=== PATIENT | male | born 1950 | race Two or more races ===

== ENCOUNTER → 2016-12-27 | Day surgery (SDC) | payer OTHER, MEDICARE | END | disposition home or self-care (01) | LOC: BMCIMAGING 08:43 | PROVIDERS: ATTEND Urology | PROC: 0VB03ZX Excision of Prostate, Percutaneous Approach, Diagnostic (ICD-10-PCS; principal; 2016-12-27) | DX: R97.20 Elevated prostate specific antigen [PSA] (principal) ==

== ENCOUNTER 2016-12-28 16:19 | Emergency (ER) | payer OTHER, MEDICARE ==
--- NOTE | 2016-12-28 17:01 | EDPHY ---
H & P Stated Complaint: pt had bx of prostate friday/now with fever/chills/pain Time Seen by Provider: 12/28/16 17:00 - Personal History Current Tetanus/Diphtheria Vaccine: Yes - Medical/Surgical History Hx Asthma: No Hx Chronic Respiratory Disease: No Hx Diabetes: No Hx Cardiac Disease: No Hx Renal Disease: No Hx Cirrhosis: No Hx Alcoholism: No Hx HIV/AIDS: No Hx Splenectomy or Spleen Trauma: No Other PMH: bph/elevated psa/cervical fx - Social History Smoking Status: Never smoked Constitutional: Initial Vital Signs Temperature (C) 37.9 C 12/28/16 16:34 Heart Rate 114 H 12/28/16 16:34 Respiratory Rate 20 12/28/16 16:34 Blood Pressure 118/82 H 12/28/16 16:34 O2 Sat (%) 92 12/28/16 16:34 O2 Delivery Mode Room Air Allergies/Adverse Reactions: No Known Allergies Allergy (Verified 12/28/16 16:33) Home Medications: Medication Instructions Recorded HYDROcodone/APAP 10/325 [Corinth 1 - 2 each PO Q4-6PRN PRN #20 tab 12/28/16 10/325] levOFLOXACIN [levAQUIN (*)] 750 mg PO DAILY #21 tab 12/28/16 Medical Decision Making - Diagnostics Imaging Results: Imaging Impressions Abdomen CT 12/28/16 17:07 Impression: 1. Heterogeneous enlargement of the prostate gland (query underlying prostatitis , although nonspecific--histology results from the prostate gland biopsy yesterday are not yet available), with no kenneth abscess identified. There is mild wall thickening of the rectum (query proctitis), and there is some perirectal inflammation. 2. There is no evidence of pneumoperitoneum. Findings were discussed with Rex Collins MD at 18:50, on 12/28/2016. ED Course/Re-evaluation: CHIEF COMPLAINT: Chills, fever, headache. HISTORY OF PRESENT ILLNESS: The patient is a 66-year-old male who presents with chills, fever, and headache that began late last night. He is one day status- post 12 biopsies on his prostate. He admits associated abdominal pressure and lower abdominal pain. He has been on antibiotics since and his last dose was last night. REVIEW OF SYSTEMS: A 10 point review of systems was performed and is negative with the exception of the elements mentioned in the history of present illness. PHYSICAL EXAM: HR, BP, O2 Sat, RR. Temp noted General Appearance: Alert, well hydrated, appropriate, and non-toxic appearing. Head: Atraumatic without scalp tenderness or obvious injury Eyes: Pupils equal, round, reactive to light and accommodation, EOMI, no trauma , no injection. Ears: Clear bilaterally, no perforation, normal landmarks Nose: Atraumatic, no rhinorrhea, clear. Throat: There is no erythema or exudates, no lesions, normal tonsils, mucus membranes moist. Neck: Supple, 2+ carotid upstroke, nontender, no lymphadenopathy. Respiratory: No retractions, no distress, no wheezes, and no accessory muscle use. Lungs are clear to auscultation bilaterally. Cardiovascular: Regular rate and rhythm, no murmurs, rubs, or gallops. Bilateral carotid, radial, dorsalis pedis, and posterior tibial pulses intact. Good capillary refill all extremities. Gastrointestinal: Abdomen is soft, nontender, non-distended, no masses, no rebound, no guarding, no peritoneal signs. Musculoskeletal: Normal active ROM of all extremities, atraumatic. Neurological: Alert, appropriate, and interactive. The patient has normal DTRs and non-focal cranial nerves, motor, sensory, and cerebellar exam. Skin: No rashes, good turgor, no nodules on palpation. Past medical history: BPH, elevated PSA, cervical fx Family history: Non-contributory. Social history: . DIAGNOSTICS/PROCEDURES/CRITICAL CARE TIME: Study: CT of the abdomen/pelvis Indication: Abdominal pain, recent prostate biopsies. Results: No abscess, no pneumoperitoneum. The study was read by the radiologist, Dr. Elkins. I viewed the images myself on the PACS system. DIFFERENTIAL DIAGNOSIS: The differential diagnosis for the patient includes, but is not limited to: severe sepsis, sepsis, prostatitis, viral syndrome. MEDICAL DECISION MAKIN-year-old male presents with chills, fever, and headache that began after he had 12 core biopsies taken of his prostate yesterday. He does not meet sepsis criteria at this time and his tachycardia is likely due to his fever. I feel this is highly likely a prostatitis from his operation yesterday. 1gm IV Ertapenem ordered. An IV was established. ISTAT ordered along with basic labs. Abdominal CT ordered to rule out procedural complications. 30mg IV Toradol administered. 1L IV saline administered for hydration. I reviewed the patient's laboratory studies. Urine is positive for blood, leukocyte esterase, and WBCs, indicating prostatitis. I will prescribe him a 20 day course of Levaquin. 1853: CT results conveyed to me by Dr. Elkins, radiology, as no abscess, no pneumoperitoneum. I discussed these results with him. He understands to follow up with his urologist. He is comfortable with the plan. - Data Points Laboratory Results: Laboratory Results 12/28/16 16:50 12/28/16 16:50 12/28/16 12/28/16 12/28/16 16:50 16:50 16:50 WBC 15.42 10^3/uL H 10^3/uL (3.80-9.50) RBC 4.88 10^6/uL 10^6/uL (4.40-6.38) Hgb 16.1 g/dL g/dL (13.7-17.5) Hct 45.0 % % (40.0-51.0) MCV 92.2 fL fL (81.5-99.8) MCH 33.0 pg pg (27.9-34.1) MCHC 35.8 g/dL g/dL (32.4-36.7) RDW 12.1 % % (11.5-15.2) Plt Count 188 10^3/uL 10^3/uL (150-400) MPV 10.6 fL fL (8.7-11.7) Neut % (Auto) 85.7 % H % (39.3-74.2) Lymph % (Auto) 6.9 % L % (15.0-45.0) [place] % (Auto) 6.5 % % (4.5-13.0) Eos % (Auto) 0.1 % L % (0.6-7.6) Baso % (Auto) 0.3 % % (0.3-1.7) Nucleat RBC Rel Count 0.0 % % (0.0-0.2) Absolute Neuts (auto) 13.20 10^3/uL H 10^3/uL (1.70-6.50) Absolute Lymphs (auto) 1.07 10^3/uL 10^3/uL (1.00-3.00) Absolute Monos (auto) 1.01 10^3/uL H 10^3/uL (0.30-0.80) Absolute Eos (auto) 0.01 10^3/uL L 10^3/uL (0.03-0.40) Absolute Basos (auto) 0.05 10^3/uL 10^3/uL (0.02-0.10) Absolute Nucleated RBC 0.00 10^3/uL 10^3/uL (0-0.01) Immature Gran % 0.5 % % (0.0-1.1) Immature Gran # 0.08 10^3/uL 10^3/uL (0.00-0.10) Sodium 135 mEq/L mEq/L (134-144) Potassium 4.2 mEq/L mEq/L (3.5-5.2) Chloride 100 mEq/L mEq/L (97-110) Carbon Dioxide 20 mEq/l L mEq/l (22-31) Anion Gap 15 mEq/L mEq/L (8-16) BUN 16 mg/dL mg/dL (7-23) Creatinine 1.1 mg/dL mg/dL (0.7-1.3) Estimated GFR > 60 Glucose 116 mg/dL H mg/dL (70-100) Calcium 9.8 mg/dL mg/dL (8.5-10.4) Urine Color YELLOW Urine Appearance HAZY Urine pH 6.0 (5.0-7.5) Ur Specific [place] 1.024 (1.002-1.030) Urine Protein 1+ H (NEGATIVE) Urine Ketones NEGATIVE (NEGATIVE) Urine Blood 3+ H (NEGATIVE) Urine Nitrate NEGATIVE (NEGATIVE) Urine Bilirubin NEGATIVE (NEGATIVE) Urine Urobilinogen NEGATIVE EU EU (0.2-1.0) Ur Leukocyte Esterase 1+ H (NEGATIVE) Urine RBC 50-182 /hpf H /hpf (0-3) Urine WBC 50-182 /hpf H /hpf (0-3) Ur Epithelial Cells TRACE /lpf /lpf (NONE-1+) Urine Mucus TRACE /lpf /lpf (NONE-1+) Urine Glucose NEGATIVE (NEGATIVE) Medications Given: Discontinued Medications Ertapenem 1 gm/ Sodium (Chloride) 100 mls @ 200 mls/hr IV EDNOW ONE PRN Reason: Protocol Stop: 12/28/16 17:36 Last Admin: 12/28/16 17:47 Dose: 100 mls Sodium Chloride (Ns) 1,000 mls @ 0 mls/hr IV EDNOW ONE; Wide Open PRN Reason: Protocol Stop: 12/28/16 17:08 Last Admin: 12/28/16 17:16 Dose: 1,000 mls Ketorolac Tromethamine (Toradol) 30 mg IVP EDNOW ONE Stop: 12/28/16 17:08 Last Admin: 12/28/16 17:15 Dose: 30 mg Departure - Departure Disposition: Home, Routine, Self-Care Clinical Impression: Prostatitis Qualifiers: Prostatitis type: unspecified Qualified Code(s): N41.9 - Inflammatory disease of prostate, unspecified Condition: Good Instructions: Prostatitis (ED) Additional Instructions: Take Levaquin as prescribed. Follow up with your urologist for reevaluation. Return for any serious worsening of condition. Referrals: Omari Doty MD [Primary Care Provider] - As per Instructions Prescriptions: HYDROcodone/APAP 10/325 [Corinth 10/325] 1 - 2 each PO Q4-6PRN PRN #20 tab PRN Reason: Pain, Moderate levOFLOXACIN [levAQUIN (*)] 750 mg PO DAILY #21 tab Report Scribed for: Rex Collins Report Scribed by: Omid Little Date of Report: 12/28/16 Time of Report: 17:37
[2016-12-28] MEDS ORDERED: KETOROLAC 30 MG/1 ML SDV IVP ONE (17:07)
[2016-12-28] MEDS ORDERED: ERTAPENEM 1 GM in NS 100 ML IV ONE (17:07)
[2016-12-28] MEDS ORDERED: NS 1,000 ML IV ONE (17:07)
[2016-12-28 17:14] LABS: % IMMATURE GRANULYOCYTES 0.5 % (0.0-1.1); ABSOLUTE IMMATURE GRANULOCYTES 0.08 10^3/uL (0.00-0.10); ADD DIFF? NO; ADD MORPH? NO; ADD SCAN? NO; ATYPICAL LYMPHOCYTE FLAG 0 (0-99); FRAGMENT RBC FLAG 0 (0-99); HEMOGLOBIN 16.1 g/dL (13.7-17.5); LEFT SHIFT FLG 0 (0-99); LIPEMIA HEMOLYSIS FLAG 90 (0-99); MEAN CELL HEMOGLOBIN CONCENTR. 35.8 g/dL (32.4-36.7); MEAN CELL VOLUME 92.2 fL (81.5-99.8); MEAN PLATELET VOLUME 10.6 fL (8.7-11.7); PLATELET CLUMPS FLAG 10 (0-99); PLATELET COUNT 188 10^3/uL (150-400); RED BLOOD CELL COUNT 4.88 10^6/uL (4.40-6.38); RED CELL DISTRIBUTION WIDTH 12.1 % (11.5-15.2)
[2016-12-28 17:15] LABS: COLOR YELLOW; LEUKOCYTE ESTERASE,URINE 1+ (NEGATIVE); NITRITE,URINE NEGATIVE (NEGATIVE)
[2016-12-28 17:18] LABS: MUCUS TRACE /lpf (NONE-1+); RBC,URINE 50-182 /hpf (0-3); WBC,URINE 50-182 /hpf (0-3)
[2016-12-28 17:23] LABS: ANION GAP 15 mEq/L (8-16); CALCIUM 9.8 mg/dL (8.5-10.4); CARBON DIOXIDE 20 mEq/l (22-31); CHLORIDE 100 mEq/L (97-110); CREATININE 1.1 mg/dL (0.7-1.3); GLOMERULAR FILTRATION RATE > 60; GLUCOSE 116 mg/dL (70-100); POTASSIUM 4.2 mEq/L (3.5-5.2); SODIUM 135 mEq/L (134-144)
[2016-12-28] MEDS ORDERED: IOPAMIDOL (ISOVUE-300) 100 ML BTL ONE (18:16)
[2016-12-28 18:59] VITALS: RESP 16
[2016-12-28] MEDS ORDERED: HYDROCOD/APAP 5/325 PREPACK#6 BTL TAKEHOME ONE (19:04)
[2016-12-28 19:11] VITALS: BP 115/65; PULSE 88; TEMP 97.9; O2SAT 96
== END 2016-12-28 19:11 | disposition home or self-care (01) ==
DX: N41.9 Inflammatory disease of prostate, unspecified (principal); E86.9 Volume depletion, unspecified
CPT/HCPCS: 74177; 96361; 96365; 96375; 99285; J1335; J1885; Q9967

== ENCOUNTER → 2017-08-18 | Outpatient (CLI) | payer OTHER, MEDICARE | LOC: BMCIMAGING 09:52 | PROVIDERS: ATTEND Orthopaedic Surgery | DX: M17.0 Bilateral primary osteoarthritis of knee (principal) ==

== ENCOUNTER → 2017-08-27 | Outpatient (CLI) | payer OTHER, MEDICARE | LOC: FIMAGING 14:35 | PROVIDERS: ATTEND Orthopaedic Surgery | DX: Z01.818 Encounter for other preprocedural examination (principal); M17.11 Unilateral primary osteoarthritis, right knee ==

== ENCOUNTER → 2017-09-11 | Outpatient (CLI) | payer OTHER, MEDICARE | LOC: BMCIMAGING 09:27 | PROVIDERS: ATTEND Orthopaedic Surgery | DX: M25.572 Pain in left ankle and joints of left foot (principal) ==

== ENCOUNTER 2017-09-22 09:02 | Observation (INO) | payer OTHER, MEDICARE ==
--- NOTE | 2017-09-22 06:37 | PDHPUP ---
History & Physical Update H&P update statement: This history and physical update is based on an assessment of the patient which was completed after admission or registration (within 24 hours), but prior to the surgery/procedure. H&P update: no change in patient's condition since H&P completed
--- NOTE | 2017-09-22 06:38 | PDIAF ---
- Diagnosis Diagnosis: right knee djd Code Status: Full Code - Medication Management Discharge Medications: Medications to Continue on Transfer Aspirin [Aspirin 81mg (*)] 81 mg PO DAILY 09/02/17 [Last Taken Unknown] Cholecalciferol Vit D3 [Vitamin D3 (*)] 1,000 units PO DAILY 09/02/17 [Last Taken Unknown] Tamsulosin HCl [Flomax 0.4 MG (*)] 0.4 mg PO DAILY18 09/02/17 [Last Taken Unknown] celeCOXIB [Celebrex (*)] 200 mg PO DAILY PRN 09/02/17 [Last Taken Unknown] traMADol [Ultram 50 mg (*)] 50 mg PO HS PRN 09/02/17 [Last Taken Unknown] Discharge Medications: Refer to the Discharge Home Medication list for PRN reason. - Orders Services needed: Physical Therapy Diet Recommendation: no restrictions on diet Activity/Weight Bearing Restrictions: wbat. rom as abbie. keep dressing intact. kamron hose x 2 weeks. f/u at two weeks, seek attn for increasing pain, redness , swelling discharge - Follow Up Care Current Providers and Referrals: Omari Doty MD [Primary Care Provider] -
[~2017-09-22 09:02] MED LIST: BUPI/epINEPH/KETOROLAC/morphINE IU ONE; CALCIUM CHLORIDE 1 GM/10 ML INJ ONE; ROPIVACAINE 0.2% 80 MG, EPINEPHrine 0.2 MG, KETOROLAC TROMETHAMINE 30 MG, morphINE 10 M... IU ONE; THROMBIN (BOVINE) 5,000 UNIT VIAL TP ONE; TRANEXAMIC ACID 1,000 MG in NS (SYRINGE) 50 ML IV ONE; ceFAZolin 1 GM/5 ML SYR ONE
[2017-09-22] MEDS ORDERED: ACETAMINOPHEN 325 MG TAB PO ONE (09:13)
[2017-09-22] MEDS ORDERED: ceFAZolin 2 GM/SWFI 2 GM/20 ML SYR IVP ONE (09:13)
[2017-09-22] MEDS ORDERED: DEXAMETHASONE 4 MG/ML VIAL IVP ONE (09:13)
[2017-09-22] MEDS ORDERED: FAMOTIDINE 20 MG TAB PO ONE (09:13)
[2017-09-22] MEDS ORDERED: LR 1,000 ML IV ONE (09:16)
[2017-09-22] MEDS ORDERED: LIDOCAINE 1% 2 ML INJ ID PRN (09:16)
--- NOTE | 2017-09-22 09:40 | PDANEPAE ---
ANE History of Present Illness R total knee arthroplasty ANE Past Medical History - Cardiovascular History Hx Hypertension: No Hx Arrhythmias: No Hx Chest Pain: No Hx Coronary Artery / Peripheral Vascular Disease: No Hx CHF / Valvular Disease: No Hx Palpitations: No - Pulmonary History Hx COPD: No Hx Asthma/Reactive Airway Disease: No Hx Recent Upper Respiratory Infection: No Hx Oxygen in Use at Home: No Hx Sleep Apnea: Yes Sleep Apnea Screening Result - Last Documented: Negative Pulmonary History Comment: sleep study 09-03-17, pt states he has been told he'll start a CPAP machine trial - Neurologic History Hx Cerebrovascular Accident: No Hx Seizures: No Hx Dementia: No - Endocrine History Hx Diabetes: No Obesity: moderate - Renal History Hx Renal Disorders: Yes Renal History Comment: nocturia x2 -prostate CA. Flomax improves urination - Liver History Hx Hepatic Disorders: No - Neurological & Psychiatric Hx Hx Neurological and Psychiatric Disorders: Yes Neurological / Psychiatric History Comment: limited cervical movement - Cancer History Hx Cancer: Yes Cancer History Comment: prostate -tx w/ radiation and lupron x 18 mos. (Q 4 mos) - Congenital Disorder History Hx Congenital Disorders: No - GI History GERD: no Hx Gastrointestinal Disorders: No - Other Health History Other Health History: OA R knee pain, L knee pain also. hands:dry skin - Chronic Pain History Chronic Pain: Yes (R knee, L knee) - Surgical History Prior Surgeries: cervical fusion C4,5,6 '69. bilat knee scopes ANE Review of Systems Review of Systems: - Exercise capacity METS (RN): 4 METS ANE Patient History - Allergies Allergies/Adverse Reactions: No Known Allergies Allergy (Verified 09/03/17 10:55) - Home Medications Home Medications: Aspirin [Aspirin 81mg (*)] 81 mg PO DAILY 09/02/17 [Last Taken 09/01/17] Cholecalciferol Vit D3 [Vitamin D3 (*)] 1,000 units PO DAILY 09/02/17 [Last Taken 09/08/17] Tamsulosin HCl [Flomax 0.4 MG (*)] 0.4 mg PO DAILY18 09/02/17 [Last Taken ] celeCOXIB [Celebrex (*)] 200 mg PO DAILY PRN 09/02/17 [Last Taken 09/08/17] traMADol [Ultram 50 mg (*)] 50 mg PO HS PRN 09/02/17 [Last Taken 09/08/17] - Anes Hx Anes Hx: no prior problems - Smoking Hx Smoking Status: Never smoked Marijuana use: Yes - Alcohol Use Alcohol Use: Other (10 drinks/week) - Family Anes Hx Family Anes Hx: none ANE Labs/Vital Signs - Vital Signs Height: 177.8 cm Weight: 108.862 kg ANE Physical Exam - Airway Neck exam: decreased ROM Mallampati Score: Class 2 (thick neck, short TMD) Mouth exam: normal dental/mouth exam (upper front cap) - Pulmonary Pulmonary: clear to auscultation - Cardiovascular Cardiovascular: regular rate and rhythym - ASA Status ASA Status: III ANE Anesthesia Plan Anesthesia Plan: spinal Regional Anesthesia: adductor canal FNB
[2017-09-22] MEDS ORDERED: TRANEXAMIC ACID 3,000 MG/50 ML BAG IRR ONE ×2 (09:44→09:48)
[2017-09-22] MEDS ORDERED: MIDAZOLAM 2 MG/2 ML VIAL IVP ONE (11:06)
[2017-09-22] MEDS ORDERED: PROPOFOL 200 MG/20 ML VIAL ONE ×3 (11:30→13:01)
[2017-09-22] MEDS ORDERED: fentaNYL 100 MCG/2 ML INJ ONE (11:30)
[2017-09-22] MEDS ORDERED: DEXAMETHASONE 4 MG/ML VIAL ONE (11:34)
[2017-09-22] MEDS ORDERED: TEMAZEPAM 15 MG CAP PO PRN (11:54)
[2017-09-22] MEDS ORDERED: PROMETHAZINE HCL 25 MG/ML INJ IVP PRN (11:54)
[2017-09-22] MEDS ORDERED: PROMETHAZINE HCL 25 MG SUPPR PR PRN (11:54)
[2017-09-22] MEDS ORDERED: METOCLOPRAMIDE 10 MG/2 ML VIAL IVP PRN (11:54)
[2017-09-22] MEDS ORDERED: ONDANSETRON 4 MG/2 ML VIAL IVP PRN ×2 (11:54→13:11)
[2017-09-22] MEDS ORDERED: diphenhydrAMINE 25 MG CAP PO PRN (11:54)
[2017-09-22] MEDS ORDERED: ONDANSETRON DISINTEGRATING 4 MG TAB PO PRN (11:54)
[2017-09-22] MEDS ORDERED: DIAZEPAM 5 MG TAB PO PRN (11:54)
[2017-09-22] MEDS ORDERED: BISACODYL 10 MG SUPP PR PRN (11:54)
[2017-09-22] MEDS ORDERED: MAGNESIUM HYDROXIDE 30 ML UDCUP PO PRN (11:54)
[2017-09-22] MEDS ORDERED: POLYETHYLENE GLYCOL 3350 17 GM PKT PO PRN (11:54)
[2017-09-22] MEDS ORDERED: DIPHENOXYLATE/ATROPINE LOMOTIL 1 TAB PO PRN (11:54)
[2017-09-22] MEDS ORDERED: LACTULOSE 20 GM/30 ML UDCUP PO PRN (11:54)
[2017-09-22] MEDS ORDERED: traMADol 50 MG TAB PO PRN ×2 (11:54→11:55)
[2017-09-22] MEDS ORDERED: LR 1,000 ML IV SCH (12:00)
[2017-09-22] MEDS ORDERED: fentaNYL 100 MCG/2 ML INJ IVP PRN (13:11)
[2017-09-22] MEDS ORDERED: NALOXONE HCL 0.4 MG/ML INJ IVP PRN (13:11)
[2017-09-22] MEDS ORDERED: HYDROmorphONE/DILAUDID 2 MG/ML INJ IVP PRN (13:11)
[2017-09-22] MEDS ORDERED: ROPIVACAINE HCL 150 MG/30 ML INJ ONE (13:43)
[2017-09-22] MEDS ORDERED: ceFAZolin 2 GM/DEXTROSE 100 ML IV SCH (14:00)
--- NOTE | 2017-09-22 17:55 | POSTANESTH ---
Post Anesthetic Evaluation Cardiovascular Status: Normal, Stable Respiratory Status: Normal, Stable Level of Consciousness/Mental Status: Can Participate in Eval Pain Control: Adequate, Prn Tx Ordered Nausea/Vomiting Control: Adequate, Prn Tx Ordered Complications Possibly Related to Anesthesia: None Noted
[2017-09-22] MEDS ORDERED: TAMSULOSIN HCL 0.4 MG CAP PO SCH (18:00)
[2017-09-22] MEDS: ACETAMINOPHEN 325 MG TAB PO SCH ×3 (18:31→23:47)
[2017-09-22] MEDS: TRANEXAMIC ACID 650 MG TAB PO SCH ×2 (18:31→20:04)
[2017-09-22] MEDS: ceFAZolin 2 GM/SWFI 2 GM/20 ML SYR IVP SCH (20:01)
[2017-09-22] MEDS: ASPIRIN 325 MG TAB PO SCH (20:01)
[2017-09-22] MEDS: SENNOSIDES/DOCUSATE SODIUM TAB PO SCH (20:02)
[2017-09-22] MEDS: FAMOTIDINE 20 MG TAB PO SCH (20:02)
[2017-09-22] MEDS: oxyCODONE IR 5 MG TAB PO PRN (23:47)
[2017-09-23] MEDS: TRANEXAMIC ACID 650 MG TAB PO SCH (04:41)
[2017-09-23] MEDS: ACETAMINOPHEN 325 MG TAB PO SCH ×2 (04:41→10:53)
[2017-09-23] MEDS: ceFAZolin 2 GM/SWFI 2 GM/20 ML SYR IVP SCH (04:42)
--- NOTE | 2017-09-23 07:23 | PDIAF ---
- Diagnosis Diagnosis: right knee djd Code Status: Full Code - Medication Management Discharge Medications: Medications to Continue on Transfer Aspirin [Aspirin 81mg (*)] 81 mg PO DAILY 09/02/17 [Last Taken 09/01/17] Cholecalciferol Vit D3 [Vitamin D3 (*)] 1,000 units PO DAILY 09/02/17 [Last Taken 09/08/17] Tamsulosin HCl [Flomax 0.4 MG (*)] 0.4 mg PO DAILY18 09/02/17 [Last Taken ] celeCOXIB [Celebrex (*)] 200 mg PO DAILY PRN 09/02/17 [Last Taken 09/08/17] traMADol [Ultram 50 mg (*)] 50 mg PO HS PRN 09/02/17 [Last Taken 09/08/17] oxyCODONE IR [Oxycodone Ir (*)] 5 - 10 mg PO Q3HRS PRN #45 tab 09/23/17 [Last Taken Unknown] Discharge Medications: Refer to the Discharge Home Medication list for PRN reason. - Orders Services needed: Physical Therapy Diet Recommendation: no restrictions on diet Diet Texture: Regular Texture Diet Activity/Weight Bearing Restrictions: wbat. rom as abbie. keep dressing intact. kamron hose x 2 weeks. f/u at two weeks, seek attn for increasing pain, redness , swelling discharge Additional Instructions: wbat rom as abbie keep dressing intact kamron hose x 2 weeks f/u at two weeks, seek attn for increasing pain, redness, swelling discharge - Follow Up Care Current Providers and Referrals: Omari Doty MD [Primary Care Provider] - Rah Marin MD [Medical Doctor] -
--- NOTE | 2017-09-23 07:24 | SOAPPROG ---
SOAP Progress Note Assessment/Plan: Assessment: s/p tka Plan:d/c home dvt precautions given f/u at two weeks 09/23/17 07:23 Subjective: no pain no cp or sob abbie po Objective: Vital Signs Temp Pulse Resp BP Pulse Ox 36.6 C 91 16 137/80 H 92 09/23/17 04:37 09/23/17 04:37 09/23/17 04:37 09/23/17 04:37 09/23/17 04:37 Laboratory Results 09/23/17 05:12 09/22/17 09/23/17 09/24/17 05:59 05:59 05:59 Intake Total 3160 Output Total 1075 Balance 2085 dressing intact intact pf,df,ehl toes warm and pink neg homans joce xrays anatomic alignment ICD10 Worksheet Patient Problems: Problems Problem Status Onset Arthritis of knee Acute - ICD10 Problem Qualifiers (1) Arthritis of knee
[2017-09-23] MEDS: SENNOSIDES/DOCUSATE SODIUM TAB PO SCH (09:03)
[2017-09-23] MEDS: ASPIRIN 325 MG TAB PO SCH (09:11)
[2017-09-23] MEDS: FAMOTIDINE 20 MG TAB PO SCH (09:11)
[2017-09-23] MEDS: oxyCODONE IR 5 MG TAB PO PRN (10:54)
[2017-09-23 11:15] VITALS: BP 116/71
--- NOTE | 2017-09-23 12:04 | ASMTCMCOM ---
CM Note CM Note Notes: Pt medically stable for d/c with [facility]. Orders sent in [employer]. Pt address/phone verified. Date Signed: 09/23/2017 12:03 PM Electronically Signed By:ISMAEL De Leon
--- NOTE | 2017-09-23 16:15 | ASDISCHSUM ---
Discharge Information Plan Status:Home with Home Health Medically Cleared to Leave: Discharge Date:09/23/2017 01:19 PM CM D/C Disposition:Home Health Service ADT D/C Disposition:Home Health Service Projected Discharge Date:09/23/2017 11:00 AM Transportation at D/C: Discharge Delay Reason: Follow-Up Date:09/23/2017 11:00 AM Discharge Slot: Final Diagnosis: Placement Information Referral Type:*Home Health Care Services Referral ID:[id number] Provider Name:[facility] Address 1:[address] [address] Address 2: City:[place] Selection Factors: State:[place] Patient Contact Information Contact Name:IVON Relationship: Address:[address] [place] Phone: State/Zip Code:[place] [address] Email: Financial Information Financial Class:Medicare Primary Plan Desc:MEDICARE OUTPATIENT Primary Plan Number:[id number] Secondary Plan Desc:[employer]ARP/MDR SUPPLEMENT Secondary Plan Number:[id number] Assessment Information [facility] CM Progress Note CM Note CM Note Notes: Pt medically stable for d/c with [facility]. [facility]. Pt address/phone verified. Date Signed: 09/23/2017 12:03 PM Electronically Signed By:ISMAEL De Leon Intervention Information Intervention Type:*Incorrect Registration Date of Service:09/22/2017 02:46 PM Patient Type:Inpatient Staff Member:ADALBERTO Scott Susan Hours: Discipline: Severity: Comment:
--- NOTE | 2017-09-25 07:43 | GOP ---
[f rep st] OPERATIVE REPORT DATE OF OPERATION: 09/22/2017 SURGEON: Rah Marin MD ACADEMIC ADMINISTRATOR: Johnson Mena, TRACK GREASER, ELECTRICAL ENGINEERING DESIGNER, surgical aide was a medical necessity for the entirety of the case. PREOPERATIVE DIAGNOSIS: Right knee degenerative joint disease. POSTOPERATIVE DIAGNOSIS: Right knee degenerative joint disease. PROCEDURE PERFORMED: Right total knee arthroplasty, MAKOplasty. FINDINGS: SPECIMENS: To Pathology, the bony cuts. INDICATIONS: The patient is a 67-year-old gentleman with end-stage arthritis to his right knee. Cli nical and radiographic features consistent with this. He has failed all attempts at conservative man agement. I have therefore recommended total knee replacement. I have outlined the surgical procedur e, risks, benefits, and alternatives. He wished to proceed. Written consent was signed and placed i n patient's chart. DESCRIPTION OF PROCEDURE: The patient was identified in the preanesthesia area. The right knee gely rly demarcated as the operative site with an indelible marker. He was given 2 g of Ancef intravenous ly en route to the operative suite. In the OR, spinal anesthetic followed by sedation was administer ed. Attention was turned to the right knee which was sterilely prepped and draped in the usual fashi on. A tourniquet was applied to the upper thigh. Appropriate time-out procedure was carried out. T he limb was then sterilely prepped and draped in the usual fashion. Standard anterior midline incisi on was made. Thick subcutaneous flaps were elevated, followed by medial parapatellar arthrotomy. Th e knee demonstrated tricompartmental changes. Decision was made to proceed with total knee replaceme nt. Two pins were then placed across the medial femur for the femoral reference array followed by fe moral check point, a separate percutaneous incision was made across the geronimo and 2 pins were placed w ith the tibial reference array placed. All bony landmarks were entered into the computer in standard fashion. The knee was balanced after removal of the osteophytes with soft tissue releases, and adju stment of the components using the MAKOplasty software. Using the MAKOplasty robot resections were m kevin for a size 6 femur, size 6 tibia, including a trochlear box cut, which was made with additional c omponent jig. Trial reduction was carried out with a 6 x 9 mm polyethylene. This revealed neutral li mb alignment, stability with varus and valgus stress throughout the flexion-extension arc and no maria e s instability. The trial components were withdrawn. A size 6 tibia was then pressed into position. A size 6 femur, pressed into position and a 6 x 9 mm polyethylene placed, confirmed to be fully seat ed. Once again, the knee was stable through full flexion-extension arc to varus and valgus stress. The patella was then everted, cut in a freehand cutting technique. Three drill holes were then made for the 35 mm asymmetric patella which was press-fit into position. Knee was taken through flexion/e xtension. The patella tracked centrally. The wound was copiously irrigated. The joint injected wit h a joint cocktail of ropivacaine, morphine, Toradol, and epinephrine. The wound was closed in layer s using #1 Ethibond. The knee instilled with platelet-rich plasma solution. Subcutaneous tissue martha sed using Quill and skin aj. A sterile dressing was applied followed by a Cryo/Cuff and the pat ient was awakened, extubated, taken to the recovery room in good stable condition. TOTAL TOURNIQUET TIME: 1 hour. COMPLICATIONS: None. IMPLANTS: Arturo Triathlon PS femoral component, size 6. Tibial component, size 6. Tibial bearing insert 6 x 9 mm. Asymmetrical patella size A35. DISPOSITION: To the recovery room then the floor. /[id number]/MODL
--- NOTE | 2017-09-25 09:18 | GDS ---
[f rep st] DISCHARGE SUMMARY PROGRAM INSTRUCTOR: None. ADMITTING DIAGNOSIS: Right knee degenerative joint disease. DISCHARGE DIAGNOSIS: Right knee degenerative joint disease. PROCEDURE: Right total knee arthroplasty. HISTORY OF PRESENT ILLNESS: The patient is a 67-year-old gentleman with end-stage arthritis to his right knee. Clinical and radiographic features are consistent with this. He presents for elective tot al knee replacement. HOSPITAL COURSE: He was admitted to the hospital floor after uncomplicated total knee replacement. H e tolerated the procedure well. He had no postoperative complications. At the time of discharge, he i s tolerating an oral diet. Pain is well controlled on oral medicines. He is voiding without difficult y. Dressing is clean, dry, and intact. He has negative Homans. X-rays are stable. DISCHARGE ACTIVITY: Weightbearing as tolerated. Range of motion as tolerated. May shower without the bandage. No soaking or immersion. FOLLOWUP: Follow up in 2 weeks. Seek attention for increasing redness, swelling, drainage or dischar ge. DISCHARGE MEDICATIONS: Aspirin 325 mg p.o. daily for 6 weeks and oxycodone 1-2 every 6 hours p.r.n. pain. /[id number]/MODL
== END 2017-09-23 13:19 | disposition home health service (06) ==
LOC: F3N 09:02 → INTOOBSV 09:02 → F3N 15:05
PROVIDERS: ADMIT Orthopaedic Surgery; ATTEND Orthopaedic Surgery
PROC: 0SRC0JZ Replacement of Right Knee Joint with Synthetic Substitute, Open Approach (ICD-10-PCS; principal; 2017-09-22 11:15)
PROC: 3E0U0GB Introduction of Recombinant Bone Morphogenetic Protein into Joints, Open Approach (ICD-10-PCS; principal; 2017-09-22 11:15)
PROC: 8E0YXBZ Computer Assisted Procedure of Lower Extremity (ICD-10-PCS; principal; 2017-09-22 11:15)
DX: M17.11 Unilateral primary osteoarthritis, right knee (principal); R97.20 Elevated prostate specific antigen [PSA]; E78.00 Pure hypercholesterolemia, unspecified; Z72.0 Tobacco use; Z79.82 Long term (current) use of aspirin; Z85.46 Personal history of malignant neoplasm of prostate; Z98.1 Arthrodesis status
CPT/HCPCS: 0232T; 20985; 27447; 73560; 88311; 97116; 97161; 97165; C1776; G8978; G8979; G8987; G8988; G8989; J0171; J0690; J1100; J1885; J2250; J2270; J2704; J2795; J3010

== ENCOUNTER → 2017-11-04 | Outpatient (CLI) | payer OTHER, MEDICARE | LOC: BMCIMAGING 10:02 → EDSTATUS 10:04 | PROVIDERS: ATTEND Orthopaedic Surgery | DX: Z47.1 Aftercare following joint replacement surgery (principal); Z96.651 Presence of right artificial knee joint ==

== ENCOUNTER → 2017-12-16 | Outpatient (CLI) | payer OTHER, MEDICARE | LOC: BMCIMAGING 15:40 | PROVIDERS: ATTEND Physician Assistant | DX: Z47.89 Encounter for other orthopedic aftercare (principal); Z96.651 Presence of right artificial knee joint ==

== ENCOUNTER → 2018-03-16 | Outpatient (CLI) | payer OTHER, MEDICARE | LOC: BMCIMAGING 09:36 | PROVIDERS: ATTEND Orthopaedic Surgery | DX: Z09 Encounter for follow-up examination after completed treatment for conditions other than malignant neoplasm (principal); Z96.651 Presence of right artificial knee joint ==

== ENCOUNTER → 2018-09-16 | Outpatient (CLI) | payer OTHER, MEDICARE | LOC: BMCIMAGING 09:14 | PROVIDERS: ATTEND Orthopaedic Surgery | DX: Z47.1 Aftercare following joint replacement surgery (principal); Z96.651 Presence of right artificial knee joint ==